=== PATIENT | male | born 1980 | race Caucasian/White ===

== ENCOUNTER 2016-08-26 19:13 | Inpatient (IN) | payer BC, OTHER ==
[~2016-08-26 19:13] MED LIST: THIAMINE 100 MG TAB PO SCH
[2016-08-26] MEDS ORDERED: SODIUM CHLORIDE 0.9% 1,000 ML IV STA (19:32)
[2016-08-26] MEDS ORDERED: LORazepam 2 MG/ML SYRINGE IV STA (19:32)
--- NOTE | 2016-08-26 19:34 | ED ---
Seizure HPI - General Chief Complaint: Seizure Stated Complaint: Seziure Time Seen by Provider: 08/26/16 19:26 Source: patient, RN notes reviewed Mode of arrival: wheelchair Limitations: no limitations - History of Present Illness Initial Comments: 36-year-old male presents to the emergency department with a chief complaint of seizure. Patient states that his friends told him he had 2 seizures today initially the first one in the front department around the second time he was in the car. Patient states it is frontal does wake up confused from the seizures. Patient states he is an alcoholic. Patient does admit to a history of seizures normally due to alcohol related issues in the past. Patient states he cannot on any medications for the seizure and recently because he does not have insurance he states he was taking Ativan in the past for them. Patient states this time he just does not feel shaky. Patient states he has no pain or discomfort. Patient states that he feels that he is back to normal. Patient denies any cough cold runny nose with this. Patient denies any recent fever, chills, shortness of breath, chest pain, back pain, abdominal pain, nausea vomiting, numbness or tingling, dysuria or hematuria, constipation or diarrhea, headaches or visual changes, or any other current symptoms. - Related Data Home Medications Medication Instructions Recorded Confirmed No Known Home Medications [No 08/26/16 08/26/16 Known Home Medications] Allergies Allergy/AdvReac Type Severity Reaction Status Date / Time No Known Allergies Allergy Verified 08/26/16 19:34 Review of Systems ROS Statement: Those systems with pertinent positive or pertinent negative responses have been documented in the HPI. ROS Other: All systems not noted in ROS Statement are negative. Past Medical History Past Medical History: Seizure Disorder Additional Past Medical History / Comment(s): from etoh withdrawl History of Any Multi-Drug Resistant Organisms: None Reported Past Surgical History: No Surgical Hx Reported Past Psychological History: Anxiety, Bipolar, Panic Disorder Smoking Status: Current every day smoker Past Alcohol Use History: Abuse Past Drug Use History: None Reported - Past Family History Mother Family Medical History: Cancer General Exam - General Exam Comments Initial Comments: General: The patient is awake and alert, in no distress, and does not appear acutely ill. Eye: Pupils are equal, round and reactive to light, extra-ocular movements are intact; there is normal conjunctiva bilaterally. No signs of icterus. Ears, nose, mouth and throat: There are moist mucous membranes and no oral lesions. Neck: The neck is supple, there is no tenderness. Cardiovascular: There is a regular rate and rhythm. No murmur, rub or gallop is appreciated. Respiratory: Lungs are clear to auscultation, respirations are non-labored, breath sounds are equal. No wheezes, stridor, rales, or rhonchi. Gastrointestinal: Soft, non-distended, non-tender abdomen without masses or organomegaly noted. There is no rebound or guarding present. No CVA tenderness. Bowel sounds are unremarkable. Back: There is no tenderness to palpation in the midline. There is no obvious deformity. No rashes noted. Musculoskeletal: Normal ROM, no tenderness, There is no pedal edema. There is no calf tenderness or swelling. Sensation intact. Pulses equal bilaterally 2+. Neurological: CN II-XII intact, There are no obvious motor or sensory deficits. Coordination appears grossly intact. Speech is normal. Skin: Skin is warm and dry and no rashes or lesions are noted. Psychiatric: Cooperative, appropriate mood & affect, normal judgment. Limitations: no limitations Course Vital Signs 08/26/16 19:21 Temperature 98.1 F Pulse Rate 105 H Respiratory 16 Rate Blood Pressure 125/86 O2 Sat by Pulse 96 Oximetry Medical Decision Making - Medical Decision Making 36-year-old male presents to emergency room chief complaint seizure. At this time patient does appear to have low platelets. Patient also does appear to have mildly elevated liver enzymes than alcohol of 54. This time we will admit the patient we will start the Ativan protocol we will do repeat blood work in the morning. We are pending a magnesium and phosphorus level for the patient. Patient is in agreement with the plan. All questions have been answered. He will be admitted. - Lab Data Result diagrams: 08/26/16 20:00 08/26/16 20:00 Lab Results 08/26/16 08/26/16 08/26/16 Range/Units 20:00 20:00 20:00 WBC 7.3 (3.8-10.6) k/uL RBC 4.71 (4.30-5.90) m/uL Hgb 15.6 (13.0-17.5) gm/dL Hct 47.0 (39.0-53.0) % MCV 99.8 (80.0-100.0) fL MCH 33.0 (25.0-35.0) pg MCHC 33.1 (31.0-37.0) g/dL RDW 15.3 (11.5-15.5) % Plt Count 74 L (150-450) k/uL Neutrophils % 60 % Lymphocytes % 29 % Monocytes % 6 % Eosinophils % 1 % Basophils % 1 % Neutrophils # 4.3 (1.3-7.7) k/uL Lymphocytes # 2.1 (1.0-4.8) k/uL Monocytes # 0.5 (0-1.0) k/uL Eosinophils # 0.0 (0-0.7) k/uL Basophils # 0.0 (0-0.2) k/uL Manual Slide Review Performed Macrocytosis Slight Sodium 149 H (137-145) mmol/L Potassium 4.1 (3.5-5.1) mmol/L Chloride 104 (98-107) mmol/L Carbon Dioxide 25 (22-30) mmol/L Anion Gap 20 mmol/L BUN 6 L (9-20) mg/dL Creatinine 0.70 (0.66-1.25) mg/dL Est GFR (MDRD) Af Amer >60 (>60 ml/min/1.73 sqM) Est GFR (MDRD) Non-Af >60 (>60 ml/min/1.73 sqM) Glucose 92 (74-99) mg/dL Calcium 9.1 (8.4-10.2) mg/dL Total Bilirubin 0.8 (0.2-1.3) mg/dL AST 270 H (17-59) U/L ALT 202 H (21-72) U/L Alkaline Phosphatase 105 (38-126) U/L Total Protein 8.8 H (6.3-8.2) g/dL Albumin 5.2 H (3.5-5.0) g/dL Urine Color Colorless Urine Appearance Clear (Clear) Urine pH 6.5 (5.0-8.0) Ur Specific [place] 1.002 (1.001-1.035) Urine Protein 1+ H (Negative) Urine Glucose (UA) Negative (Negative) Urine Ketones Negative (Negative) Urine Blood Negative (Negative) Urine Nitrate Negative (Negative) Urine Bilirubin Negative (Negative) Urine Urobilinogen <2.0 (<2.0) mg/dL Ur Leukocyte Esterase Negative (Negative) Urine RBC <1 (0-5) /hpf Urine Bacteria Rare H (None) /hpf Urine Opiates Screen Not Detected (NotDetected) Ur Oxycodone Screen Not Detected (NotDetected) Urine Methadone Screen Not Detected (NotDetected) Ur Propoxyphene Screen Not Detected (NotDetected) Ur Barbiturates Screen Not Detected (NotDetected) U Tricyclic Antidepress Not Detected (NotDetected) Ur Phencyclidine Scrn Not Detected (NotDetected) Ur Amphetamines Screen Not Detected (NotDetected) U Methamphetamines Scrn Not Detected (NotDetected) U Benzodiazepines Scrn Not Detected (NotDetected) Urine Cocaine Screen Not Detected (NotDetected) U Marijuana (THC) Screen Not Detected (NotDetected) Serum Alcohol 454 mg/dL 08/26/16 21:04 normal sinus rhythm 80 bpm, normal axis, no atopy, no S-T depressions or elevations, - Radiology Data Radiology results: report reviewed, image reviewed Disposition Clinical Impression: Generalized seizure, History of nicotine dependence, Alcohol intoxication, Elevated liver enzymes, Thrombocytopenia Disposition: ADMITTED IP TO THIS [facility] Condition: Stable Time of Disposition: 21:06 Decision Date: 08/26/16 Decision Time: 21:06
[2016-08-26 20:26] LABS: Basophils % (A) 1 %; CH 33.3; CHCM 33.5; Eosinophils % (A) 1 %; HDW 2.12; HGB 15.6 gm/dL (13.0-17.5); Luc # (Auto) 0.29; Luc % (Auto) 4; Lymphocytes # (A) 2.1 k/uL (1.0-4.8); Lymphocytes % (A) 29 %; MCHC 33.1 g/dL (31.0-37.0); MCV 99.8 fL (80.0-100.0); Macrocytosis Slight; Mean Platelet Volume 7.4; Monocytes # (A) 0.5 k/uL (0-1.0); Monocytes % (A) 6 %; Neutrophils # (A) 4.3 k/uL (1.3-7.7); Neutrophils % (A) 60 %; RBC 4.71 m/uL (4.30-5.90); RDW 15.3 % (11.5-15.5); WBC 7.3 k/uL (3.8-10.6); WBC (Perox) 7.48
[2016-08-26 20:31] LABS: Appearance,Urine Clear (Clear); Bacteria,Urine Rare /hpf; Bilirubin,Urine Negative (Negative); Glucose,Urine (UA) Negative (Negative); Ketones,Urine Negative (Negative); Leukocyte Esterase,Urine Negative (Negative); Nitrite,Urine Negative (Negative); PH, Urine 6.5 (5.0-8.0); Particle Count 70; Protein,Urine 1+ (Negative); RBC,Urine <1 /hpf (0-5); Specific Gravity,Urine 1.002 (1.001-1.035); UA Billing (MACRO vs. MICRO) MICRO; Urobilinogen,Urine <2.0 mg/dL (<2.0)
[2016-08-26 20:45] LABS: Manual Review Performed
[2016-08-26 20:50] LABS: ALT 202 U/L (21-72); AST 270 U/L (17-59); Alkaline Phosphatase 105 U/L (38-126); Anion Gap 20 mmol/L; Blood Urea Nitrogen 6 mg/dL (9-20); Calcium 9.1 mg/dL (8.4-10.2); Carbon Dioxide 25 mmol/L (22-30); Chloride 104 mmol/L (98-107); Glucose 92 mg/dL (74-99); Non-African American GFR(MDRD) >60 (>60 ml/min/1.73 sqM); Potassium 4.1 mmol/L (3.5-5.1); Sodium 149 mmol/L (137-145); Total Bilirubin 0.8 mg/dL (0.2-1.3); Total Protein 8.8 g/dL (6.3-8.2)
--- NOTE | 2016-08-26 20:57 | CT ---
EXAMINATION TYPE: CT brain wo con DATE OF EXAM: 08/26/2016 8:41 PM COMPARISON: 03/05/2016 HISTORY: Seizure today. CT DLP: 1008.7 mGycm Automated exposure control for dose reduction was used. FINDINGS: The ventricles and sulci are within normal limits. There is no mass effect nor midline shift. There i s no sign of intracranial hemorrhage. Calvarium is intact. There is mucosal thickening in the right m axillary sinus. IMPRESSION: Right maxillary sinusitis without change compared to old exam. No acute intracranial abnormality.
[2016-08-26 21:01] LABS: Alcohol 454 mg/dL
[2016-08-26] MEDS ORDERED: IBUPROFEN 400 MG TAB PO PRN (21:06)
[2016-08-26] MEDS ORDERED: NALOXONE 0.4 MG/ML 1 ML VIAL IV PRN (21:06)
[2016-08-26] MEDS ORDERED: THIAMINE 100 MG/ML 2 ML VIAL IM STA (21:06)
[2016-08-27 02:41] LABS: Magnesium 2.3 mg/dL (1.6-2.3); Phosphorous 4.2 mg/dL (2.5-4.5)
[2016-08-27 05:29] LABS: Basophils # (A) 0.1 k/uL (0-0.2); Basophils % (A) 1 %; CH 33.4; CHCM 32.9; Eosinophils # (A) 0.1 k/uL (0-0.7); Eosinophils % (A) 2 %; HDW 2.17; HGB 14.2 gm/dL (13.0-17.5); Luc # (Auto) 0.11; Luc % (Auto) 2; Lymphocytes # (A) 1.8 k/uL (1.0-4.8); Lymphocytes % (A) 28 %; MCH 32.2 pg (25.0-35.0); MCHC 31.6 g/dL (31.0-37.0); MCV 101.9 fL (80.0-100.0); Macrocytosis Slight; Mean Platelet Volume 8.8; Monocytes # (A) 0.4 k/uL (0-1.0); Monocytes % (A) 6 %; Neutrophils % (A) 61 %; RBC 4.41 m/uL (4.30-5.90); RDW 15.3 % (11.5-15.5); WBC 6.5 k/uL (3.8-10.6); WBC (Perox) 6.76
[2016-08-27 05:40] LABS: ALT 171 U/L (21-72); AST 217 U/L (17-59); Alkaline Phosphatase 84 U/L (38-126); Anion Gap 11 mmol/L; Blood Urea Nitrogen 7 mg/dL (9-20); Calcium 8.6 mg/dL (8.4-10.2); Carbon Dioxide 27 mmol/L (22-30); Chloride 108 mmol/L (98-107); Glucose 93 mg/dL (74-99); Magnesium 2.3 mg/dL (1.6-2.3); Non-African American GFR(MDRD) >60 (>60 ml/min/1.73 sqM); Phosphorous 4.5 mg/dL (2.5-4.5); Potassium 4.3 mmol/L (3.5-5.1); Sodium 146 mmol/L (137-145); Total Bilirubin 0.7 mg/dL (0.2-1.3); Total Protein 7.4 g/dL (6.3-8.2)
[2016-08-27] MEDS: LORazepam 2 MG/ML SYRINGE IV PRN ×6 (06:40→23:02)
[2016-08-27] MEDS: SODIUM CHLORIDE 0.9% 1,000 ML IV SCH ×3 (07:42→17:03)
[2016-08-27] MEDS: ONDANSETRON 4 MG/2 ML VIAL IVP PRN (09:18)
[2016-08-27] MEDS: THIAMINE 100 MG TAB PO SCH ×2 (15:37→17:03)
--- NOTE | 2016-08-27 17:34 | HP ---
DATE OF ADMISSION: Mr. Infante is a 36-year-old gentleman with a significant history of alcohol abuse who came to the hospital after sustaining 2 seizures. The patient apparently has a history of alcohol withdrawal seizures in the past. The patient underwent an alcohol rehab program and had been sober for about 8 weeks; however, for the last few weeks he states that he fell off the wagon. The patient's last drink was about 24 hours prior to admission. Patient had a seizure that was witnessed in the emergency room. Patient was started on CIWA protocol and triaged to the floor. The patient has been started on a banana bag for IV fluids. During my examination the patient appears to be slightly jittery. Denies having any headaches or visual or auditory hallucinations. In the past patient apparently has had multiple seizures due to alcohol withdrawal and has also been intubated for airway protection for the same problem. PAST MEDICAL HISTORY: None other than what was described in HPI. PAST SURGICAL HISTORY: None. SOCIAL HISTORY: Patient currently has been drinking over a fifth of alcohol a day. He smokes half a pack of cigarettes. Denies any illicit drug use. Has been living in a three-quarter sober house for the last few months. Patient apparently lost his job over 2 weeks ago for drinking while working. FAMILY HISTORY: Not pertinent to the current admission. MEDICATIONS: None. ALLERGIES: NONE REPORTED. PHYSICAL EXAMINATION: Vitals were reviewed and were within normal limits. GENERAL APPEARANCE: Alert and oriented x3. Does not appear to be in distress. Head is atraumatic, normocephalic. Pupils equal, round and reactive to light and accommodation. Neck is supple. No JVD. LUNGS: Good air entry. Clear to auscultation. No rhonchi or wheezes. HEART: S1, S2. Regular rate and rhythm. No murmurs appreciated. ABDOMEN: Soft, nontender. No organomegaly. NEUROLOGICAL EXAMINATION: No focal motor or sensory deficits appreciated. Patient does have tremors. Denies having any visual or auditory hallucinations. Laboratory data was reviewed. There is some concern for mild hepatitis. ASSESSMENT AND PLAN: 1. Alcohol withdrawal seizures. 2. Alcoholic hepatitis. 3. Ongoing tobacco use. PLAN: Continue CIWA protocol. Patient will be started on Librium as scheduled for the next 3 to 4 days. Patient's liver enzymes are only slightly elevated. Continue IV fluids with multivitamin. Patient will be monitored overnight, as that would complete at least 24 hours from the last seizure. Patient has a long history of severe withdrawal seizures, including needing ventilator support, and we will keep a close eye on him for another 12 hours and thereafter he will be discharged. Social Work has been consulted. However, patient does have access to it and has been in the past living in a three-quarter sober house.
[2016-08-27] MEDS: NICOTINE 21MG/24HR PATCH TRANSDERM SCH (23:59)
[2016-08-28] MEDS: LORazepam 2 MG/ML SYRINGE IV PRN ×3 (01:48→16:48)
[2016-08-28] MEDS: SODIUM CHLORIDE 0.9% 1,000 ML IV SCH ×2 (03:00→19:26)
[2016-08-28] MEDS: NICOTINE 21MG/24HR PATCH TRANSDERM SCH (08:04)
[2016-08-28] MEDS ORDERED: SODIUM CHLORIDE 0.9% 1,000 ML with MVI, ADULT NO.4 WITH VIT K 10 ML, THIAMINE 100 MG, F... IV SCH ×4 (09:00)
[2016-08-28] MEDS: THIAMINE 100 MG TAB PO SCH ×3 (12:34→19:33)
[2016-08-28] MEDS: ONDANSETRON 4 MG/2 ML VIAL IVP PRN (16:48)
--- NOTE | 2016-08-28 16:50 | P.PN ---
Subjective Principal diagnosis: alcohol withdrawal seizures 36-year-old gentleman with significant history of alcohol abuse and thereafter severe withdrawal symptoms. Comes in the hospital after sustaining 2 episodes of serial seizures. Patient was monitored for 24 hours was maintained on Librium and Ativan IV when necessary on CIWA protocol. Patient was to be discharged today however patient apparently was awake to ambulate and his heart rate went into the 150s. Patient was short of breath. Denied having any chest pain, abdominal pain, nausea, vomiting. Objective - Vital Signs Vital signs: Vital Signs Temp 98.9 F 08/28/16 15:00 Pulse 91 08/28/16 15:00 Resp 18 08/28/16 15:00 BP 133/90 08/28/16 15:00 Pulse Ox 99 08/28/16 15:00 Intake & Output 08/27/16 08/28/16 08/28/16 18:59 06:59 18:59 Intake Total 800 1440 240 Balance 800 1440 240 Intake: IV 800 900 Sodium Chloride 0.9% 1, 800 900 000 ml @ 100 mls/hr IV . Q10H LUKASZ Rx#:[id number] Oral 540 240 Other: Voiding Method Toilet Toilet # Voids 2 2 - Exam Physical exam Gen. appearance oriented 3 in no distress HEENT head is atraumatic normocephalic pupils equal round and reactive light and accommodation EOMI Neck is supple no JVD Lungs good air entry clear to auscultation no rhonchi or wheezing Heart S1-S2 heard regular rate and rhythm no murmurs appreciated Abdomen is soft nontender no organomegaly bowel sounds are intact Neurologically cranial nerves II-12 grossly intact no focal motor or sensory deficits noted Skin no abnormalities appreciated - Labs CBC & Chem 7: 08/27/16 05:17 08/27/16 05:17 Assessment and Plan Plan: #1 alcohol withdrawal seizures #2 sinus tachycardia likely secondary to dehydration #3 history of alcohol abuse previously on a ventilator #4 ongoing tobacco use Plan Patient does have community resources. Continue Librium on discharge. However patient be given additional IV fluid resuscitation and be kept inpatient for another 24 hours due to the episodes of tachycardia. If patient's heart rate does not improve will likely need to start patient on a clonidine patch till patient comes off his withdrawal symptoms. The symptoms are likely secondary to withdrawal and not any underlying organic disease.
[2016-08-28] MEDS: 1: MVI, ADULT NO.4 WITH VIT K 10 ML, THIAMINE 100 MG, FOLIC ACID 1 MG in SODIUM CHLORIDE IV SCH ×4 (19:08)
[2016-08-29] MEDS: NICOTINE 21MG/24HR PATCH TRANSDERM SCH ×2 (00:32→11:16)
[2016-08-29] MEDS: LORazepam 2 MG/ML SYRINGE IV PRN ×2 (02:02→05:28)
[2016-08-29] MEDS: 1: MVI, ADULT NO.4 WITH VIT K 10 ML, THIAMINE 100 MG, FOLIC ACID 1 MG in SODIUM CHLORIDE IV SCH ×4 (05:25)
[2016-08-29 08:06] VITALS: BP 127/86; PULSE 72; RESP 18; TEMP 97.5
[2016-08-29] MEDS: THIAMINE 100 MG TAB PO SCH (11:20)
--- NOTE | 2016-08-29 11:50 | P.DS ---
Providers Date of admission: 08/26/16 21:26 Attending physician: Maxine Servin Primary care physician: Stated None Hospital Course: Patient was admitted to the hospital with alcohol withdrawal seizures. Patient was monitored in the hospital for 2 days. Patient was started on Librium. Day prior to discharge patient was having episodes of tachycardia. Which were attribute it to autonomic dysfunction due to alcohol withdrawal. Patient be discharged on Librium for the next few days. Patient already has outpatient set up for community resources. - Exam Physical exam Gen. appearance oriented 3 in no distress HEENT head is atraumatic normocephalic pupils equal round and reactive light and accommodation EOMI Neck is supple no JVD Lungs good air entry clear to auscultation no rhonchi or wheezing Heart S1-S2 heard regular rate and rhythm no murmurs appreciated Abdomen is soft nontender no organomegaly bowel sounds are intact Neurologically cranial nerves II-12 grossly intact no focal motor or sensory deficits noted Skin no abnormalities appreciated Assessment and Plan Plan: #1 alcohol withdrawal seizures #2 sinus tachycardia likely secondary to dehydration #3 history of alcohol abuse previously on a ventilator #4 ongoing tobacco use Patient was made to ambulate during my examination on the day of discharge did not have any episodes of dizziness. Was appropriate with his gait. Is recommended not to drive for 6 months. Patient is discharged to his three quarter house. Continue Librium. Encouraged alcohol cessation. Patient Condition at Discharge: Stable Plan - Discharge Summary New Discharge Prescriptions: Thiamine [Vitamin B-1] 100 mg PO BID@1200,1700 #6 tab chlordiazePOXIDE HCl [Librium] 20 mg PO TID #12 cap Discharge Medication List Thiamine [Vitamin B-1] 100 mg PO BID@1200,1700 #6 tab 08/28/16 [Rx] chlordiazePOXIDE HCl [Librium] 20 mg PO TID #12 cap 08/28/16 [Rx] Follow up Appointment(s)/Referral(s): Ruma Bryson MD [REFERRING] - 09/10/16 2:30 pm Patient Instructions/Handouts: Chlordiazepoxide/Clidinium (By mouth), Thiamine (By mouth), Alcohol Withdrawal (DC) Discharge Disposition: HOME SELF-CARE
== END 2016-08-29 13:50 | disposition home or self-care (01) | DRG 897 ==
LOC: EC 19:13 → 6SEL 21:26 → 5MS5E 08-27 11:36
PROVIDERS: ADMIT Internal Medicine; ATTEND Internal Medicine
DX: F10.239 Alcohol dependence with withdrawal, unspecified (principal); D69.6 Thrombocytopenia, unspecified; G31.2 Degeneration of nervous system due to alcohol; K70.10 Alcoholic hepatitis without ascites; F10.229 Alcohol dependence with intoxication, unspecified; F17.210 Nicotine dependence, cigarettes, uncomplicated; E86.0 Dehydration; F41.0 Panic disorder [episodic paroxysmal anxiety]; F41.9 Anxiety disorder, unspecified; R00.0 Tachycardia, unspecified; G40.909 Epilepsy, unspecified, not intractable, without status epilepticus; Y90.8 Blood alcohol level of 240 mg/100 ml or more
CPT/HCPCS: 36415; 70450; 80053; 80306; 80320; 81001; 83735; 84100; 85025; 93005; 96361; 96372; 96374; 96375; 96376; 99285

== ENCOUNTER 2016-11-12 04:19 | Inpatient (IN) | payer BC, OTHER ==
[2016-11-12] MEDS ORDERED: SODIUM CHLORIDE 0.9% 1,000 ML IV STA (04:45)
[2016-11-12] MEDS ORDERED: LORazepam 2 MG/ML SYRINGE IV STA (04:46)
--- NOTE | 2016-11-12 04:58 | ED ---
Seizure HPI - General Chief Complaint: Seizure Stated Complaint: Seizure Time Seen by Provider: 11/12/16 04:19 Source: patient, RN notes reviewed, old records reviewed Mode of arrival: EMS Limitations: no limitations - History of Present Illness Initial Comments: This is a 36-year-old male history of alcoholism who states he believes she has seizure as he woke up on his living room floor prior to being transported by EMS. He states he drinks about one fifth of alcohol a day he last drank at 9 AM yesterday morning he believes he is going through the beginning of withdrawal which shakes. He has had a history of delirium tremens before. He denies any fevers chills or sweats he does admit to smoking cigarettes in addition to using alcohol. He denies any head neck or back pain at this time. MD Complaint: possible seizure, shaking, other - Related Data Home Medications Medication Instructions Recorded Confirmed No Known Home Medications [No 11/12/16 11/12/16 Known Home Medications] Allergies Allergy/AdvReac Type Severity Reaction Status Date / Time No Known Allergies Allergy Verified 08/26/16 19:34 Review of Systems ROS Statement: Those systems with pertinent positive or pertinent negative responses have been documented in the HPI. ROS Other: All systems not noted in ROS Statement are negative. Past Medical History Past Medical History: Seizure Disorder Additional Past Medical History / Comment(s): Seizures from etoh withdrawl, chronic back pain History of Any Multi-Drug Resistant Organisms: None Reported Past Surgical History: No Surgical Hx Reported Past Anesthesia/Blood Transfusion Reactions: No Reported Reaction Past Psychological History: Anxiety, Bipolar, Panic Disorder Smoking Status: Current every day smoker Past Alcohol Use History: Abuse Additional Past Alcohol Use History / Comment(s): current drinker Past Drug Use History: None Reported - Past Family History Mother Family Medical History: Cancer Additional Family Medical History / Comment(s): lung with mets to the brain General Exam - General Exam Comments Initial Comments: This is a well-developed well-nourished awake alert oriented times female he does demonstrate tremors there is a small of alcohol conjoiners on his breath Limitations: no limitations General appearance: alert, anxious Head exam: Present: atraumatic, normocephalic, normal inspection Eye exam: Present: normal appearance, PERRL, EOMI. Absent: scleral icterus, conjunctival injection, periorbital swelling ENT exam: Present: mucous membranes dry Neck exam: Present: normal inspection. Absent: tenderness, meningismus, lymphadenopathy Respiratory exam: Present: normal lung sounds bilaterally. Absent: respiratory distress, wheezes, rales, rhonchi, stridor Cardiovascular Exam: Present: normal rhythm, tachycardia, normal heart sounds. Absent: systolic murmur, diastolic murmur, rubs, gallop, clicks GI/Abdominal exam: Present: soft, normal bowel sounds. Absent: distended, tenderness, guarding, rebound, rigid Extremities exam: Present: full ROM, normal capillary refill, other (Tremors are noted bilaterally.). Absent: tenderness, pedal edema, joint swelling, calf tenderness Back exam: Present: normal inspection Neurological exam: Present: alert, oriented X3, CN II-XII intact Psychiatric exam: Present: anxious Skin exam: Present: warm, dry, intact, normal color. Absent: rash Course Vital Signs 11/12/16 11/12/16 04:20 06:02 Temperature 100.3 F H Pulse Rate 83 70 Respiratory 16 16 Rate Blood Pressure 149/93 143/90 O2 Sat by Pulse 95 98 Oximetry Medical Decision Making - Medical Decision Making Did reevaluate the patient he is still demonstrating symptoms of withdrawal including shakes nausea. I did discuss the need for admission with him and with the on-call physician. - Lab Data Result diagrams: 11/12/16 04:35 11/12/16 04:35 Lab Results 11/12/16 11/12/16 11/12/16 Range/Units 04:35 04:35 04:35 WBC 7.4 (3.8-10.6) k/uL RBC 4.13 L (4.30-5.90) m/uL Hgb 14.0 (13.0-17.5) gm/dL Hct 41.3 (39.0-53.0) % MCV 100.0 (80.0-100.0) fL MCH 34.0 (25.0-35.0) pg MCHC 34.0 (31.0-37.0) g/dL RDW 14.5 (11.5-15.5) % Plt Count 82 L (150-450) k/uL Neutrophils % 78 % Lymphocytes % 12 % Monocytes % 6 % Eosinophils % 1 % Basophils % 2 % Neutrophils # 5.7 (1.3-7.7) k/uL Lymphocytes # 0.9 L (1.0-4.8) k/uL Monocytes # 0.4 (0-1.0) k/uL Eosinophils # 0.0 (0-0.7) k/uL Basophils # 0.1 (0-0.2) k/uL Manual Slide Review Performed Macrocytosis Slight Sodium 143 (137-145) mmol/L Potassium 3.6 (3.5-5.1) mmol/L Chloride 102 (98-107) mmol/L Carbon Dioxide 27 (22-30) mmol/L Anion Gap 14 mmol/L BUN 10 (9-20) mg/dL Creatinine 0.58 L (0.66-1.25) mg/dL Est GFR (MDRD) Af Amer >60 (>60 ml/min/1.73 sqM) Est GFR (MDRD) Non-Af >60 (>60 ml/min/1.73 sqM) Glucose 149 H (74-99) mg/dL POC Glucose (mg/dL) (75-99) mg/dL POC Glu Md Psychiatry ID Plasma Lactic Acid [place] (0.7-2.0) mmol/L Calcium 9.8 (8.4-10.2) mg/dL Magnesium 1.9 (1.6-2.3) mg/dL Total Bilirubin 1.7 H (0.2-1.3) mg/dL AST 149 H (17-59) U/L ALT 91 H (21-72) U/L Alkaline Phosphatase 81 (38-126) U/L Total Creatine Kinase 152 (55-170) U/L CK-MB (CK-2) 0.7 (0.0-2.4) ng/mL CK-MB (CK-2) Rel Index 0.5 Total Protein 8.4 H (6.3-8.2) g/dL Albumin 4.8 (3.5-5.0) g/dL Amylase 88 (30-110) U/L Lipase 245 (23-300) U/L Urine Color Urine Appearance (Clear) Urine pH (5.0-8.0) Ur Specific [place] (1.001-1.035) Urine Protein (Negative) Urine Glucose (UA) (Negative) Urine Ketones (Negative) Urine Blood (Negative) Urine Nitrite (Negative) Urine Bilirubin (Negative) Urine Urobilinogen (<2.0) mg/dL Ur Leukocyte Esterase (Negative) Urine RBC (0-5) /hpf Urine WBC (0-5) /hpf Amorphous Sediment (None) /hpf Urine Mucus (None) /hpf Urine Opiates Screen (NotDetected) Ur Oxycodone Screen (NotDetected) Urine Methadone Screen (NotDetected) Ur Propoxyphene Screen (NotDetected) Ur Barbiturates Screen (NotDetected) U Tricyclic Antidepress (NotDetected) Ur Phencyclidine Scrn (NotDetected) Ur Amphetamines Screen (NotDetected) U Methamphetamines Scrn (NotDetected) U Benzodiazepines Scrn (NotDetected) Urine Cocaine Screen (NotDetected) U Marijuana (THC) Screen (NotDetected) Serum Alcohol <10 mg/dL 11/12/16 11/12/16 11/12/16 Range/Units 04:35 05:07 05:58 WBC (3.8-10.6) k/uL RBC (4.30-5.90) m/uL Hgb (13.0-17.5) gm/dL Hct (39.0-53.0) % MCV (80.0-100.0) fL MCH (25.0-35.0) pg MCHC (31.0-37.0) g/dL RDW (11.5-15.5) % Plt Count (150-450) k/uL Neutrophils % % Lymphocytes % % Monocytes % % Eosinophils % % Basophils % % Neutrophils # (1.3-7.7) k/uL Lymphocytes # (1.0-4.8) k/uL Monocytes # (0-1.0) k/uL Eosinophils # (0-0.7) k/uL Basophils # (0-0.2) k/uL Manual Slide Review Macrocytosis Sodium (137-145) mmol/L Potassium (3.5-5.1) mmol/L Chloride (98-107) mmol/L Carbon Dioxide (22-30) mmol/L Anion Gap mmol/L BUN (9-20) mg/dL Creatinine (0.66-1.25) mg/dL Est GFR (MDRD) Af Amer (>60 ml/min/1.73 sqM) Est GFR (MDRD) Non-Af (>60 ml/min/1.73 sqM) Glucose (74-99) mg/dL POC Glucose (mg/dL) 131 H (75-99) mg/dL POC Glu Md Psychiatry Melissa Mercado Plasma Lactic Acid [place] 1.1 (0.7-2.0) mmol/L Calcium (8.4-10.2) mg/dL Magnesium (1.6-2.3) mg/dL Total Bilirubin (0.2-1.3) mg/dL AST (17-59) U/L ALT (21-72) U/L Alkaline Phosphatase (38-126) U/L Total Creatine Kinase (55-170) U/L CK-MB (CK-2) (0.0-2.4) ng/mL CK-MB (CK-2) Rel Index Total Protein (6.3-8.2) g/dL Albumin (3.5-5.0) g/dL Amylase (30-110) U/L Lipase (23-300) U/L Urine Color Yellow Urine Appearance Cloudy (Clear) Urine pH 8.0 (5.0-8.0) Ur Specific [place] 1.021 (1.001-1.035) Urine Protein 2+ H (Negative) Urine Glucose (UA) Negative (Negative) Urine Ketones 2+ H (Negative) Urine Blood Negative (Negative) Urine Nitrite Negative (Negative) Urine Bilirubin 1+ H (Negative) Urine Urobilinogen >12.0 (<2.0) mg/dL Ur Leukocyte Esterase Negative (Negative) Urine RBC 1 (0-5) /hpf Urine WBC 1 (0-5) /hpf Amorphous Sediment Rare H (None) /hpf Urine Mucus Rare H (None) /hpf Urine Opiates Screen Not Detected (NotDetected) Ur Oxycodone Screen Not Detected (NotDetected) Urine Methadone Screen Not Detected (NotDetected) Ur Propoxyphene Screen Not Detected (NotDetected) Ur Barbiturates Screen Not Detected (NotDetected) U Tricyclic Antidepress Not Detected (NotDetected) Ur Phencyclidine Scrn Not Detected (NotDetected) Ur Amphetamines Screen Not Detected (NotDetected) U Methamphetamines Scrn Not Detected (NotDetected) U Benzodiazepines Scrn Not Detected (NotDetected) Urine Cocaine Screen Detected H (NotDetected) U Marijuana (THC) Screen Not Detected (NotDetected) Serum Alcohol mg/dL - EKG Data -: EKG Interpreted by Me EKG shows normal: sinus rhythm, axis, intervals, QRS complexes, ST-T waves (EKG shows a normal sinus rhythm of 72 [place] interval 156 QRS duration 98 daily since QTC of 370/[address]-T wave changes) Rate: normal - Radiology Data Radiology results: report reviewed (I did review the x-ray report no acute findings.), image reviewed Disposition Clinical Impression: Alcohol withdrawal seizure, Tremors of nervous system, Dehydration Disposition: ADMITTED IP TO THIS [facility] Condition: Stable
[2016-11-12] MEDS ORDERED: SODIUM CHLORIDE 0.9% 1,000 ML with MVI, ADULT NO.4 WITH VIT K 10 ML, THIAMINE 100 MG, F... IV ONE ×4 (05:00)
[2016-11-12 05:04] LABS: Basophils # (A) 0.1 k/uL (0-0.2); Basophils % (A) 2 %; CH 34.4; CHCM 34.5; Eosinophils % (A) 1 %; HCT 41.3 % (39.0-53.0); HDW 2.36; Luc # (Auto) 0.17; Luc % (Auto) 2; Lymphocytes # (A) 0.9 k/uL (1.0-4.8); Lymphocytes % (A) 12 %; Macrocytosis Slight; Mean Platelet Volume 8.2; Monocytes # (A) 0.4 k/uL (0-1.0); Monocytes % (A) 6 %; Neutrophils # (A) 5.7 k/uL (1.3-7.7); Neutrophils % (A) 78 %; RBC 4.13 m/uL (4.30-5.90); RDW 14.5 % (11.5-15.5); WBC 7.4 k/uL (3.8-10.6)
[2016-11-12 05:08] LABS: Glucose,Whole Blood 131 mg/dL (75-99)
[2016-11-12 05:17] LABS: ALT 91 U/L (21-72); AST 149 U/L (17-59); Alcohol <10 mg/dL; Alkaline Phosphatase 81 U/L (38-126); Amylase 88 U/L (30-110); Anion Gap 14 mmol/L; Blood Urea Nitrogen 10 mg/dL (9-20); Calcium 9.8 mg/dL (8.4-10.2); Carbon Dioxide 27 mmol/L (22-30); Chloride 102 mmol/L (98-107); Glucose 149 mg/dL (74-99); Magnesium 1.9 mg/dL (1.6-2.3); Non-African American GFR(MDRD) >60 (>60 ml/min/1.73 sqM); Potassium 3.6 mmol/L (3.5-5.1); Sodium 143 mmol/L (137-145); Total Bilirubin 1.7 mg/dL (0.2-1.3); Total Protein 8.4 g/dL (6.3-8.2)
[2016-11-12 05:25] LABS: Manual Review Performed
[2016-11-12 05:34] LABS: Creatine Kinase MB 0.7 ng/mL (0.0-2.4)
--- NOTE | 2016-11-12 05:56 | XR ---
EXAM: XR Chest, 2 Views CLINICAL HISTORY: Reason: cough TECHNIQUE: Frontal and lateral views of the chest. COMPARISON: No relevant prior studies available. FINDINGS: Lungs: No airspace consolidation. Pleural space: No significant pleural effusion. No pneumothorax. Heart: Normal cardiac silhouette. Bones/joints: Age-indeterminate deformity of right mid/lower rib cage. IMPRESSION: 1. No intrathoracic abnormality detected. 2. Age-indeterminate deformity of right mid/lower rib cage. Recommend correlation with clinical exam findings to exclude fracture.
--- NOTE | 2016-11-12 06:01 | CT ---
EXAM: CT Head Without Intravenous Contrast CLINICAL HISTORY: Seizure activity. TECHNIQUE: Axial computed tomography images of the head/brain without intravenous contrast. Coronal and sagittal reformatted images were created and reviewed. CTDI is 57 mGy and DLP is 995 mGy-cm This CT exam was performed using one or more of the following dose reduction techniques: automated exposure control, adjustment of the mA and/or kV according to patient size, and/or use of iterative reconstruction technique. COMPARISON: CT head dated 08/26/16. FINDINGS: Brain: No acute intracranial hemorrhage, mass effect, midline shift or herniation. Ventricles: No evidence of hydrocephalus. Bones/joints: No acute fracture. Chronic deformity of the left medial orbital wall. Sinuses: Bilateral maxillary sinus mucosal thickening. Mastoid air cells: Unremarkable as visualized. No mastoid effusion. IMPRESSION: 1. No acute intracranial hemorrhage or mass effect. 2. Chronic deformity of the left medial orbital wall. 3. Bilateral maxillary sinus mucosal thickening.
[2016-11-12 06:27] LABS: Amorphous Sediment,Urine Rare /hpf; Appearance,Urine Cloudy (Clear); Bilirubin,Urine 1+ (Negative); Glucose,Urine (UA) Negative (Negative); Ketones,Urine 2+ (Negative); Leukocyte Esterase,Urine Negative (Negative); Mucus,Urine Rare /hpf; Nitrite,Urine Negative (Negative); Particle Count 12120; Protein,Urine 2+ (Negative); RBC,Urine 1 /hpf (0-5); Specific Gravity,Urine 1.021 (1.001-1.035); UA Billing (MACRO vs. MICRO) MICRO; Urobilinogen,Urine >12.0 mg/dL (<2.0); WBC,Urine 1 /hpf (0-5)
[2016-11-12] MEDS ORDERED: NALOXONE 0.4 MG/ML 1 ML VIAL IV PRN (06:47)
[2016-11-12] MEDS ORDERED: THIAMINE 100 MG/ML 2 ML VIAL IM STA (06:49)
[2016-11-12] MEDS ORDERED: LORazepam 2 MG/ML SYRINGE IV PRN (06:49)
[2016-11-12] MEDS ORDERED: ONDANSETRON 4 MG/2 ML VIAL IVP PRN (06:50)
[2016-11-12] MEDS: PANTOPRAZOLE 40 MG/10 ML VIAL IV SCH ×2 (09:07→23:47)
[2016-11-12] MEDS: NICOTINE 21MG/24HR PATCH TRANSDERM SCH (09:07)
[2016-11-12] MEDS: LORazepam 2 MG/ML SYRINGE IV PRN ×3 (09:11→18:54)
[2016-11-12] MEDS: 0.9% NACL WITH KCL 20 MEQ/L 1,000 ML IV SCH ×2 (10:02→16:46)
[2016-11-12 11:47] LABS: Glucose,Whole Blood 101 mg/dL (75-99)
[2016-11-12] MEDS: THIAMINE 100 MG TAB PO SCH (16:46)
[2016-11-12 17:05] LABS: Glucose,Whole Blood 107 mg/dL (75-99)
[2016-11-12 20:27] LABS: Glucose,Whole Blood 142 mg/dL (75-99)
--- NOTE | 2016-11-12 21:39 | HP ---
DATE OF ADMISSION: 11/12/2016 CHIEF COMPLAINT: Acute alcohol intoxication and DTs. HISTORY OF PRESENT ILLNESS: This is the first admission for this 36-year-old white male, a chronic alcoholic. He drinks about a fifth a day. He tried to stop and had a seizure. He came to the emergency room with tremors and was admitted in DTs with alcohol withdrawal syndrome and seizures. REVIEW OF SYSTEMS: He has had no headaches, focal neurologic deficits, diplopia, change in vision or hearing, chest pain, cough, hemoptysis, heart disease, hypertension, abdominal pain, jaundice, hematochezia, melena, hematemesis, renal disease, diabetes, etc. Past medical history, family history, and personal and social histories reveal that he is on no medications and ALLERGIC TO NONE. He has had no surgery. He drinks a fifth a day. He smokes about a half pack of cigarettes a day. PHYSICAL EXAMINATION: Blood pressure is 138/90 with a pulse of 106, respirations of 36, and he is afebrile. In general he appeared to be well developed, well nourished, in no acute distress. Skin color was normal. Skin was warm and dry. Lymph nodes were not enlarged. Head, ears, eyes, nose, mouth and throat were normal. There was no nystagmus or diplopia. Chest was clear. Cardiac exam was normal. No murmurs. ABDOMEN: Soft, nontender without visceromegaly or masses. There was no ascites. Extremities were normal. Neurologically he was intact. IMPRESSION: 1. Alcohol withdrawal seizure. 2. Delirium tremens. 3. Chronic alcoholism. PLAN: 1. Bed rest. 2. Seizure precautions. 3. Depakote 1 gram q.12.
[2016-11-12] MEDS: DIVALPROEX 500 MG TABLET.DR PO SCH (23:47)
[2016-11-13] MEDS: LORazepam 2 MG/ML SYRINGE IV PRN ×6 (01:03→23:05)
[2016-11-13 07:26] LABS: Glucose,Whole Blood 136 mg/dL (75-99)
[2016-11-13] MEDS: DIVALPROEX 500 MG TABLET.DR PO SCH ×2 (08:09→20:40)
[2016-11-13] MEDS: PANTOPRAZOLE 40 MG/10 ML VIAL IV SCH ×2 (08:09→20:40)
[2016-11-13] MEDS: NICOTINE 21MG/24HR PATCH TRANSDERM SCH (08:29)
[2016-11-13 11:20] LABS: Glucose,Whole Blood 99 mg/dL (75-99)
[2016-11-13] MEDS: THIAMINE 100 MG TAB PO SCH ×2 (12:14→17:47)
--- NOTE | 2016-11-13 16:04 | PN ---
DATE OF SERVICE: 11/13/2016 CHIEF COMPLAINT: Alcoholism and DTs. HISTORY OF PRESENT ILLNESS: This gentleman is doing a little bit better. He is still somewhat tremulous, and we will hold him over for another day. PHYSICAL EXAM: Chest is clear. Cardiac exam is normal. The abdomen is soft, nontender. IMPRESSION: 1. Delirium tremens. 2. Alcoholism. 3. Seizure disorder. PLAN: Continue on current program. Probably home tomorrow.
[2016-11-13 16:47] LABS: Glucose,Whole Blood 138 mg/dL (75-99)
[2016-11-13] MEDS: 0.9% NACL WITH KCL 20 MEQ/L 1,000 ML IV SCH (17:45)
[2016-11-13 21:09] LABS: Glucose,Whole Blood 125 mg/dL (75-99)
[2016-11-14] MEDS: DIVALPROEX 500 MG TABLET.DR PO SCH ×2 (07:35→21:32)
[2016-11-14] MEDS: PANTOPRAZOLE 40 MG/10 ML VIAL IV SCH (07:35)
[2016-11-14] MEDS: NICOTINE 21MG/24HR PATCH TRANSDERM SCH (07:36)
[2016-11-14] MEDS: LORazepam 2 MG/ML SYRINGE IV PRN (07:36)
[2016-11-14 11:09] VITALS: BMI 25.8
--- NOTE | 2016-11-14 11:49 | P.DS ---
Providers Date of admission: 11/12/16 07:01 Expected date of discharge: 11/14/16 Attending physician: Scar Castorena Primary care physician: Stated None Hospital Course: This is a 36-year-old male history of alcoholism who states he believes she has seizure as he woke up on his living room floor prior to being transported by EMS. He states he drinks about one fifth of alcohol a day he last drank at 9 AM yesterday morning he believes he is going through the beginning of withdrawal which shakes. He has had a history of delirium tremens before. He denies any fevers chills or sweats he does admit to smoking cigarettes in addition to using alcohol. He denies any head neck or back pain at this time. In the emergency room a computed tomography scan of the brain showed no acute intracranial hemorrhage no mass effect. Unremarkable study the patient's urine drug screen was positive for cocaine blood alcohol level less than 10 platelets , 82 patient was started on CIWA protocol for impending DTs Impression discharge diagnosis report of a seizure episode prior to admission suspect alcohol-induced Is on admission urine drug screen positive for cocaine Chronic alcoholism daily consumption one fifth of alcohol a day Chronic nicotine dependency Present on admission thrombocytopenia suspect alcohol-induced Chronic alcoholism fifth the day with prior admissions for DVT with alcohol withdrawal The above dictated assessment and findings were discussed with dr castorena. Impression and the plan of care have been dictated as directed. Tata Rocha nurse practitioner acting as a scribe for dr castorena Patient Condition at Discharge: Stable Plan - Discharge Summary Follow up Appointment(s)/Referral(s): None,Stated [Primary Care Provider] - 1-2 days Scar Castorena MD [STAFF PHYSICIAN] - 11/18/16 Discharge Disposition: HOME SELF-CARE
--- NOTE | 2016-11-14 11:54 | P.PN ---
Subjective 36-year-old was admitted with reportedly having had a seizure prior to admission to the emergency room where he woke up on his living room floor activated the EMS system. States he drank a fifth of days last drink was 9:00 in the morning the day before coming into the emergency room. Patient stated that he came into the emergency room he felt like he was having the beginning of withdrawal from alcohol he was developing shakes. Patient states he's had a prior history of delirium tremors. Patient's been seen this morning and patient states she's not ready to go home he feels tremulous still is getting IV Ativan for impending DTs Objective - Vital Signs Vital signs: Vital Signs Temp 98.3 F 11/14/16 07:00 Pulse 89 11/14/16 07:00 Resp 16 11/14/16 07:00 BP 128/80 11/14/16 07:00 Pulse Ox 99 11/14/16 07:00 Intake & Output 11/13/16 11/14/16 11/14/16 18:59 06:59 18:59 Intake Total 930 Balance 930 Weight 77.111 kg Intake: IV 450 0.9% NaCl with KCl 20 Meq 450 /l 1,000 ml @ 50 mls/hr IV .Q20H [id number] Rx#: [id number] Oral 480 Other: Voiding Method Urinal Toilet Toilet # Voids 2 2 # Bowel Movements 2 - Exam Physical exam 36-year-old male resting in bed states feels anxious Lungs essentially clear adequate air movement Heart S1-S2 audible and regular Abdomen flat soft nontender Extremities tremors noted to the bilateral hands patient states he feels shaky - Labs CBC & Chem 7: 11/12/16 04:35 11/12/16 04:35 Labs: Abnormal Lab Results - Last 24 Hours (Table) 11/13/16 11/13/16 Range/Units 16:46 21:07 POC Glucose (mg/dL) 138 H 125 H (75-99) mg/dL Assessment and Plan Plan: Impression discharge diagnosis report of a seizure episode prior to admission suspect alcohol-induced on admission urine drug screen positive for cocaine Chronic alcoholism daily consumption one fifth of alcohol a day last drank a fifth the day before coming into the emergency room Chronic nicotine dependency Present on admission thrombocytopenia suspect alcohol-induced Chronic alcoholism fifth the day with prior admissions for DVT with alcohol withdrawal Plan Continue the Depakote 1 g twice a day as ordered Change Ativan to oral DVT and GI prophylaxis Continue to monitor for impending DTs Prepped for discharge probable 24 hours The above dictated assessment and findings were discussed with dr castorena. Impression and the plan of care have been dictated as directed. Tata Rocha nurse practitioner acting as a scribe for dr castorena
[2016-11-14] MEDS: THIAMINE 100 MG TAB PO SCH ×2 (12:50→17:02)
[2016-11-14] MEDS: LORazepam 1 MG TAB PO PRN ×3 (12:50→21:32)
[2016-11-14] MEDS ORDERED: FAMOTIDINE 20 MG TAB PO SCH (21:00)
[2016-11-15] MEDS: LORazepam 1 MG TAB PO PRN ×5 (01:49→18:24)
--- NOTE | 2016-11-15 07:12 | PN ---
CHIEF COMPLAINT: Alcoholism and delirium tremens. HISTORY OF PRESENT ILLNESS: This gentleman is doing well and not shaky at all. He can probably be discharged. PHYSICAL EXAM: Chest is clear. Cardiac exam is normal. ABDOMEN: Soft, nontender. IMPRESSION: 1. Acute alcohol intoxication. 2. Delirium tremens. PLAN: Probably home today and this will be arranged by the nurse practitioner.
[2016-11-15 08:04] VITALS: BP 117/79; PULSE 97; RESP 16; TEMP 98.1
[2016-11-15] MEDS: DIVALPROEX 500 MG TABLET.DR PO SCH (09:55)
[2016-11-15] MEDS: NICOTINE 21MG/24HR PATCH TRANSDERM SCH (09:57)
[2016-11-15 09:58] LABS: Basophils % (A) 0 %; CH 33.8; CHCM 32.8; Eosinophils # (A) 0.1 k/uL (0-0.7); Eosinophils % (A) 1 %; HCT 43.5 % (39.0-53.0); HDW 2.16; Luc # (Auto) 0.23; Luc % (Auto) 2; Lymphocytes # (A) 2.2 k/uL (1.0-4.8); Lymphocytes % (A) 22 %; MCH 33.4 pg (25.0-35.0); MCHC 32.3 g/dL (31.0-37.0); MCV 103.5 fL (80.0-100.0); Macrocytosis Slight; Mean Platelet Volume 8.7; Monocytes # (A) 0.6 k/uL (0-1.0); Monocytes % (A) 6 %; Neutrophils # (A) 6.9 k/uL (1.3-7.7); Neutrophils % (A) 69 %; RDW 14.7 % (11.5-15.5); WBC 10.1 k/uL (3.8-10.6); WBC (Perox) 9.81
[2016-11-15 10:06] LABS: ALT 85 U/L (21-72); AST 100 U/L (17-59); Alkaline Phosphatase 86 U/L (38-126); Anion Gap 13 mmol/L; Blood Urea Nitrogen 9 mg/dL (9-20); Calcium 10.3 mg/dL (8.4-10.2); Carbon Dioxide 27 mmol/L (22-30); Chloride 99 mmol/L (98-107); Glucose 161 mg/dL (74-99); Non-African American GFR(MDRD) >60 (>60 ml/min/1.73 sqM); Potassium 4.3 mmol/L (3.5-5.1); Sodium 139 mmol/L (137-145); Total Protein 8.3 g/dL (6.3-8.2)
[2016-11-15] MEDS: THIAMINE 100 MG TAB PO SCH ×2 (13:44→18:23)
--- NOTE | 2016-11-15 14:13 | PN ---
CHIEF COMPLAINT: Acute alcohol intoxication and delirium tremens. HISTORY OF PRESENT ILLNESS: Patient is doing well and he is stable and could have gone home yesterday. PHYSICAL EXAM: Chest is clear. Cardiac exam is normal. ABDOMEN: Soft, nontender. There is no tremulousness. IMPRESSION: 1. Alcoholism. 2. Delirium tremens. PLAN: Home today and this will be arranged by the nurse practitioner.
--- NOTE | 2016-11-15 20:43 | DS ---
DATE OF ADMISSION: 11/12/2016 DATE OF DISCHARGE: 11/15/2016 CHIEF COMPLAINT: Acute alcohol intoxication, delirium tremens, and alcohol withdrawal seizure. HISTORY OF PRESENT ILLNESS: This gentleman is doing well and we will probably send him home today. This will be arranged by the nurse practitioner. He will be followed up as an outpatient.
== END 2016-11-15 19:30 | disposition home or self-care (01) | DRG 897 ==
LOC: EC 04:19 → 5MS5E 07:01
PROVIDERS: ADMIT Family Medicine; ATTEND Family Medicine
DX: F10.231 Alcohol dependence with withdrawal delirium (principal); D69.6 Thrombocytopenia, unspecified; F17.210 Nicotine dependence, cigarettes, uncomplicated
CPT/HCPCS: 36415; 70450; 71020; 80053; 80306; 80320; 81001; 82150; 82550; 82553; 83605; 83690; 83735; 85025; 87040; 93005; 96361; 96372; 96374; 99285